=== PATIENT | female | born 1955 | race Caucasian/White ===

== ENCOUNTER 2022-08-31 14:11 | Inpatient (IN) | payer OTHER ==
[~2022-08-31] VITALS: Ht 165.1 cm; Wt 61.1 kg
[~2022-08-31 14:11] MED LIST: AMLO5 PO; Desyrel50 MG PO; Keflex500 MG PO; PRAM.125 PO; Zofran Odt8 MG SL
[2022-08-31 16:03] LABS: BASOPHILS ABSOLUTE AUTO 0.07 K/mm3 (0.00-0.23); BASOPHILS PERCENT AUTO 1 % (0-2); EOSINOPHILS ABSOLUTE AUTO 0.09 K/mm3 (0.00-0.68); EOSINOPHILS PERCENT AUTO 1 % (0-6); Hematocrit 21.5 % (33.0-51.0); Hemoglobin 7.3 g/dL (11.5-16.0); IMMATURE GRAN ABSOLUTE AUTO 0.07 K/mm3 (0.00-0.10); IMMATURE GRAN PERCENT AUTO 1 % (0-1); LYMPHOCYTES ABSOLUTE AUTO 0.45 K/mm3 (0.84-5.20); LYMPHOCYTES PERCENT AUTO 4 % (21-46); MONOCYTES ABSOLUTE AUTO 0.48 K/mm3 (0.16-1.47); MONOCYTES PERCENT AUTO 4 % (4-13); Mean Corpuscular HGB 31.1 pg (26.0-34.0); Mean Corpuscular Volume 92 fL (80-100); Mean Platelet Volume 9.7 fL (9.1-12.4); NEUTROPHILS ABSOLUTE AUTO 10.31 K/mm3 (1.96-9.15); NEUTROPHILS PERCENT AUTO 90 % (41-73); Platelet Count 121 K/mm3 (150-400); RDW Coefficient Variation 15.4 % (11.7-14.2); RDW Standard Deviation 50.5 fL (35.1-46.3); Red Blood Cell Count 2.35 M/mm3 (3.80-5.20); White Blood Cell Count 11.47 K/mm3 (4.00-11.30)
[2022-08-31 16:29] LABS: Albumin, Blood 3.2 g/dL (3.4-5.0); Bilirubin, Total 0.7 mg/dL (0.1-1.0); Bun/Creatinine Ratio 9.1 (12.0-20.0); Creatinine, Blood 10.8 mg/dL (0.40-1.00); Globulin, Blood 3.1 g/dL (2.2-4.0); Potassium, Blood 4.1 mmol/L (3.5-5.5); Total Protein, Blood 6.3 g/dL (6.4-8.2)
[2022-08-31 20:50] LABS: Hemoglobin 7.6 g/dL (11.5-16.0)
[2022-08-31 21:42] LABS: Percent Saturation 19.9 % (15.0-50.0)
[2022-08-31 23:30] LABS: Source, Urine Clean Catch
[2022-08-31 23:33] LABS: Bilirubin, Urine Neg (Neg); Blood, Urine 2+ (Neg); Glucose Qualitative, Urine Neg (Neg); Ketones, Urine Neg (Neg); Leukocyte Esterase, Urine 2+ (Neg); Nitrite, Urine Pos (Neg); Protein, Urine 3+ (Neg); Specific Gravity, Urine 1.015 (1.003-1.022); Urobilinogen, Urine NORM (Normal)
[2022-08-31 23:48] LABS: Appearance, Urine Hazy (Clear); Color, Urine Pale Yellow (P-Yellow)
[2022-08-31 23:49] LABS: Bacteria Many /hpf; Hyaline Casts 0-2 /lpf (0-2); Red Blood Cells, Urine 0-2 /hpf (0-2); Squamous Epithelial Cells Few /hpf (Few)
[2022-09-01 00:04] LABS: Creatinine, Urine Random 49.7 mg/dL (27.00-270.00); Protein, Urine Random 192.7 mg/dL (0.0-11.9)
[2022-09-01 04:31] LABS: BASOPHILS ABSOLUTE AUTO 0.08 K/mm3 (0.00-0.23); BASOPHILS PERCENT AUTO 1 % (0-2); EOSINOPHILS ABSOLUTE AUTO 0.19 K/mm3 (0.00-0.68); EOSINOPHILS PERCENT AUTO 2 % (0-6); Hematocrit 20.4 % (33.0-51.0); Hemoglobin 7.2 g/dL (11.5-16.0); IMMATURE GRAN ABSOLUTE AUTO 0.12 K/mm3 (0.00-0.10); IMMATURE GRAN PERCENT AUTO 1 % (0-1); LYMPHOCYTES PERCENT AUTO 7 % (21-46); MONOCYTES PERCENT AUTO 5 % (4-13); Mean Corpuscular HGB 31.9 pg (26.0-34.0); Mean Corpuscular HGB Conc 35.3 g/dL (31.5-36.5); Mean Corpuscular Volume 90 fL (80-100); Mean Platelet Volume 9.7 fL (9.1-12.4); NEUTROPHILS ABSOLUTE AUTO 10.86 K/mm3 (1.96-9.15); NEUTROPHILS PERCENT AUTO 85 % (41-73); Platelet Count 121 K/mm3 (150-400); RDW Coefficient Variation 15.3 % (11.7-14.2); RDW Standard Deviation 49.7 fL (35.1-46.3); Red Blood Cell Count 2.26 M/mm3 (3.80-5.20); White Blood Cell Count 12.85 K/mm3 (4.00-11.30)
--- NOTE | 2022-09-01 04:56 | NUR ---
SHIFT SUMMARY PT ARRIVED TO FLOOR VIA W/C. ASSESSMENT COMPLETE, ADMISSION COMPLETE. SKIN ASSESSMENT DONE, SKIN INTACT. BP ELEVATED ON ARRIVAL, ADMINISTERED PRN HYDRALAYZINE. LATER IN AM, ADMINISTERED 2ND DOSE OF PRN HYDRALYZINE FOR SBP 172. UA COLLECTED. PT STARTED ON ABX. PT REPORTS MINIMIAL OUTPUT SINCE IV LASIX. STRICT I/O'S. PT AMBULATING INDEPENDENTLY IN ROOM, AWARE TO USE HAT WHEN URINATING. PT REPORTS DIFFICULTY BREATHING AT REST, SPO2 >92% ON ROOM AIR, LUNGS COARSE CRACKLES. DENIES ANY CP OR PAIN ANYWHERE ELSE. PT ORIENTED X4, ABLE TO MAKE NEEDS KNOWN, CALL LIGHT IN REACH.
[2022-09-01 06:14] LABS: Albumin, Blood 3.1 g/dL (3.4-5.0); Bilirubin, Total 0.5 mg/dL (0.1-1.0); Calcium, Blood 8.8 mg/dL (8.5-10.1); Potassium, Blood 3.9 mmol/L (3.5-5.5); Total Protein, Blood 6.1 g/dL (6.4-8.2)
[2022-09-01 06:18] LABS: Bun/Creatinine Ratio 9.9 (12.0-20.0); Creatinine, Blood 10.9 mg/dL (0.40-1.00); Phosphorus, Blood 8.6 mg/dL (2.5-4.9)
--- NOTE | 2022-09-01 06:29 | NUR ---
PHYSCICIAN NOTIFICATION [id number] PAGED RECYCLING COLLECTIONS DRIVER REGARDING REGARDING CRITICALLY HIGH PHOS 8.6, NO NEW ORDERS.
--- NOTE | 2022-09-01 18:45 | NUR ---
SHIFT SUMMARY PT SLEEPING MOST OF DAY. WAS AWAKE ON AND OFF THIS AFTERNOON DUE TO A NOSE BLEED THAT LESSENED BUT WAS STILL SPOTTING FOR APPROX 1.5 HOURS. BP ELEVATED AND HYDRALAZINE GIVEN. INDEPENDENT TO BATHROOM BUT APPEARS WEAK AND REPORTS TIRING VERY QUICKLY AND EASILY. STATES ALL SHE WANTS TO DO IS LAY BACK DOWN AND GO TO SLEEP. DR. GOLDEN REQUESTING DINNER TO BE HELD FOR POSSIBLE PERMCATH PLACEMENT THIS EVENING. PT AWARE AND AGREEABLE BUT SAYS SHE IS QUITE HUNGRY SINCE SHE SLEPT THROUGH LUNCH.
--- NOTE | 2022-09-02 06:02 | NUR ---
Patient brought back up from dialysis catheter placement. Sang drainage noted on dressing, dressing changed and reinforced. PRN pain meds given. Patient states pain located in lower extremities. Patient is independent and walks without assistance. AA0X4. Hydralazine given for systolic BP >160. HR in 90's at rest.
[2022-09-02 06:09] LABS: HBSAG SCREEN Negative (Negative)
--- NOTE | 2022-09-02 12:00 | NUR ---
PT RETURNED FROM DIALYSIS. MORE DROWSY AND ACTS "DRUNK" REMAINS ORIENTED AND ABLE TO RESPOND APPROPRIATELY. REPORTS SEVERE BACK PAIN. LONG LINE TEAMSTER CALLED APPROX 30 MINUTES PRIOR TO PT BEING DONE WITH DIALYSIS AND DISCUSSED CONCERN ABOUT CHANGE IN BEHAVIOR. BRIEFLY WENT AND CHECKED ON PT AND SHE REPORTED LOTS OF PAIN AND WAS ROCKING BACK AND FORTH IN BED. APPEARED WITHDRAWN AND UNINTERESTED IN TALKING AT THE TIME. MD NOTIFIED OF CHANGE IN MENTATION/BEHAVIOR
[2022-09-02 12:24] LABS: BASOPHILS ABSOLUTE AUTO 0.05 K/mm3 (0.00-0.23); BASOPHILS PERCENT AUTO 0 % (0-2); EOSINOPHILS ABSOLUTE AUTO 0.04 K/mm3 (0.00-0.68); EOSINOPHILS PERCENT AUTO 0 % (0-6); Hematocrit 18.8 % (33.0-51.0); Hemoglobin 6.7 g/dL (11.5-16.0); IMMATURE GRAN ABSOLUTE AUTO 0.12 K/mm3 (0.00-0.10); IMMATURE GRAN PERCENT AUTO 1 % (0-1); LYMPHOCYTES ABSOLUTE AUTO 0.34 K/mm3 (0.84-5.20); LYMPHOCYTES PERCENT AUTO 3 % (21-46); MONOCYTES ABSOLUTE AUTO 0.73 K/mm3 (0.16-1.47); MONOCYTES PERCENT AUTO 5 % (4-13); Mean Corpuscular HGB 31.9 pg (26.0-34.0); Mean Corpuscular HGB Conc 35.6 g/dL (31.5-36.5); Mean Corpuscular Volume 90 fL (80-100); Mean Platelet Volume 10.6 fL (9.1-12.4); NEUTROPHILS ABSOLUTE AUTO 12.38 K/mm3 (1.96-9.15); NEUTROPHILS PERCENT AUTO 91 % (41-73); Platelet Count 152 K/mm3 (150-400); RDW Coefficient Variation 15.8 % (11.7-14.2); RDW Standard Deviation 51.3 fL (35.1-46.3); White Blood Cell Count 13.66 K/mm3 (4.00-11.30)
[2022-09-02 13:38] LABS: Albumin, Blood 3.1 g/dL (3.4-5.0); Anion Gap 12 mmol/L (6-16); Blood Urea Nitrogen 40 mg/dL (8-24); Bun/Creatinine Ratio 8.2 (12.0-20.0); CO2, Blood 24 mmol/L (21-32); Calcium, Blood 8.7 mg/dL (8.5-10.1); Chloride, Blood 100 mmol/L (98-108); Creatinine, Blood 4.86 mg/dL (0.40-1.00); Glomerular Filtration Rate 9 (60-); Glucose, Blood 141 mg/dL (70-99); Phosphorus, Blood 3.4 mg/dL (2.5-4.9); Potassium, Blood 3.1 mmol/L (3.5-5.5); Sodium, Blood 136 mmol/L (136-145)
--- NOTE | 2022-09-02 14:30 | NUR ---
PT ATTEMPTED TO GET OOB TO USE RESTROOM. UNABLE TO MOVE HER FEET OR TAKE STEPS. WAS ABLE TO BEAR HER WEIGHT THOUGH. ATTEMPTED TO USE FWW AND JUST PUSHED IT FORWARD WITHOUT TAKING STEPS. REQUIRED MOD ASSIST UP TO BSC. DENIED FEELING LIGHTHEADED OR DIZZY. CONTINUES TO APPEAR "DRUNK". TO GO TO CT SHORTLY.
[2022-09-02 14:48] LABS: Base Excess Venous 4.6 mmol/L; Bicarbonate Venous 28.3 mmol/L (24.0-30.0); PCO2 Venous 34.5 mmHg (38-42); pH Blood Venous 7.51 (7.34-7.37)
--- NOTE | 2022-09-02 16:30 | NUR ---
PT MORE APPROPRIATE AND ABLE TO TAKE A FEW STEPS TO THE COMMODE. NEURO CHECK COMPLETED EARLIER HAD EQUAL STRENGTH IN ARMS AND LEGS WITH WEAKNESS PRESENT. NO FACIAL DROOP NOTED. VOICE STRONGER NOW AND PT BECOMING BEHAVIORLY MORE HER BASELINE...CHATTY AND FRIENDLY.
--- NOTE | 2022-09-02 18:41 | NUR ---
REPORT CALLED TO ISIDORO AYERS IN ICU. PT CONTINUED TO IMPROVE MENTALLY. PLAN FOR FOLLOW UP CT THIS EVENING WITH POTENTIAL TRANSFER TO [facility]. LAST BP CHECKED WAS 157 SBP WITH MD AWARE. TRANSFERRED TO ROOM ICU 9 BY BED WITH BELONGINGS.
--- NOTE | 2022-09-02 19:00 | NUR ---
ASSUMED CARE ASSUMED CARE OF THIS PATIENT AT 1900. BEDSIDE REPORT COMPLETED WITH ANDRIA CHAUDHRY. PATIENT IS LYING IN BED AWAKE AND TALKING ON THE TELEPHONE. NO MEDICATIONS INF THROUGH PIV'S. PERMACATH IN PLACE AND 2 PIV'S.
[2022-09-02 20:58] LABS: Albumin, Blood 2.9 g/dL (3.4-5.0); Anion Gap 8 mmol/L (6-16); Blood Urea Nitrogen 44 mg/dL (8-24); Bun/Creatinine Ratio 7.4 (12.0-20.0); CO2, Blood 27 mmol/L (21-32); Calcium, Blood 8.6 mg/dL (8.5-10.1); Chloride, Blood 102 mmol/L (98-108); Creatinine, Blood 5.93 mg/dL (0.40-1.00); Glomerular Filtration Rate 7 (60-); Glucose, Blood 113 mg/dL (70-99); Phosphorus, Blood 5.6 mg/dL (2.5-4.9); Potassium, Blood 3.4 mmol/L (3.5-5.5); Sodium, Blood 137 mmol/L (136-145)
[2022-09-03 03:26] LABS: BASOPHILS ABSOLUTE AUTO 0.05 K/mm3 (0.00-0.23); BASOPHILS PERCENT AUTO 1 % (0-2); EOSINOPHILS ABSOLUTE AUTO 0.08 K/mm3 (0.00-0.68); EOSINOPHILS PERCENT AUTO 1 % (0-6); Hematocrit 19.9 % (33.0-51.0); Hemoglobin 6.7 g/dL (11.5-16.0); IMMATURE GRAN ABSOLUTE AUTO 0.07 K/mm3 (0.00-0.10); IMMATURE GRAN PERCENT AUTO 1 % (0-1); LYMPHOCYTES ABSOLUTE AUTO 0.67 K/mm3 (0.84-5.20); LYMPHOCYTES PERCENT AUTO 8 % (21-46); MONOCYTES ABSOLUTE AUTO 0.56 K/mm3 (0.16-1.47); MONOCYTES PERCENT AUTO 7 % (4-13); Mean Corpuscular HGB 31.3 pg (26.0-34.0); Mean Corpuscular HGB Conc 33.7 g/dL (31.5-36.5); Mean Corpuscular Volume 93 fL (80-100); NEUTROPHILS ABSOLUTE AUTO 6.99 K/mm3 (1.96-9.15); NEUTROPHILS PERCENT AUTO 83 % (41-73); Platelet Count 125 K/mm3 (150-400); RDW Coefficient Variation 15.9 % (11.7-14.2); RDW Standard Deviation 54.2 fL (35.1-46.3); Red Blood Cell Count 2.14 M/mm3 (3.80-5.20); White Blood Cell Count 8.42 K/mm3 (4.00-11.30)
[2022-09-03 04:01] LABS: Albumin, Blood 2.9 g/dL (3.4-5.0); Anion Gap 9 mmol/L (6-16); Blood Urea Nitrogen 44 mg/dL (8-24); Bun/Creatinine Ratio 6.9 (12.0-20.0); CO2, Blood 26 mmol/L (21-32); Calcium, Blood 8.6 mg/dL (8.5-10.1); Chloride, Blood 103 mmol/L (98-108); Creatinine, Blood 6.42 mg/dL (0.40-1.00); Glomerular Filtration Rate 7 (60-); Glucose, Blood 95 mg/dL (70-99); Phosphorus, Blood 6.5 mg/dL (2.5-4.9); Potassium, Blood 3.5 mmol/L (3.5-5.5); Sodium, Blood 138 mmol/L (136-145)
--- NOTE | 2022-09-03 05:01 | NUR ---
SHIFT SUMMARY PATIENT HAD REPEAT HEAD CT COMPLETED WITH NO CHANGES NOTED FROM PREVIOUS CT. DR. CARRILLO CONSULTED WITH [facility] AND IT WAS DETERMINED TO KEEP PATIENT AT [facility]. ORDERS RECEIVED TO KEEP SBP LESS THAN 150 AND MONITOR FOR NEURO CHANGES. PATIENT STATUS CHANGED TO PCU. PATIENT WAS UP TO BSC TWICE AND UP TO RECLINER ONCE. AMBULATES WELL WITH 1 PERSON SBA-LEGS ARE STILL SHAKEY WHEN AMBULATING. VSS STABLE, DENIES HEADACHE, NAUSEA, AND VISION CHANGES. MRI ORDERED FOR DAY SHIFT. NO OTHER CHANGES DURING SHIFT.
--- NOTE | 2022-09-03 08:30 | NUR ---
Assumed care for pt at 0700. Pt had a repeat CT scan last night, plan is for MRI today, pt has tolerated that imaging prior. Goal is to keep systolic <150 now. Plan is for pt to receive dialysis today through her Permacath in right anterior chest. Pt ambulatory w/ standby assist due to balance, she remains implusive though, only using callbell 50% of the time. Pt has been downgraded to PCU status. She is A&Ox4, GCS 15, and resting comfrotably in bed currently.
--- NOTE | 2022-09-03 09:07 | NUR ---
Completed MRI safety sheet faxed.
--- NOTE | 2022-09-03 11:24 | NUR ---
Pt has been type and screened. 1 unit of PRBCs is available and she will be transfused during dialysis.
--- NOTE | 2022-09-03 11:47 | NUR ---
Pt signed consent for blood transfusion. RN witnessed and placed consent in her chart.
--- NOTE | 2022-09-03 13:49 | NUR ---
Pt taken by transport to MRI. Pt will be transported to dialysis, she remains in her hospital bed.
--- NOTE | 2022-09-03 17:37 | NUR ---
Pt completed dialysis and RN went to [place] pt back to ICU 9. She received 1 unit of PRBCs during dialysis.
--- NOTE | 2022-09-03 19:02 | NUR ---
Pt had an MRI completed and received dialysis w/ 1 unit of PRBCs. Blood consent is in the chart. Pt worked w/ Speech, PT and OT, she is a standby assist w/ a walker. Goal is systolic <150.
[2022-09-03 19:56] LABS: SARS-Cov-2 (COVID-19) PCR, MMC NEGATIVE (NEGATIVE)
--- NOTE | 2022-09-03 22:35 | NUR ---
ASSUMPTION OF CARE/ASSESSMENT: ASSUMED CARE OF PT AT 1900. PT STATES SHE IS TIRED AND EXHAUSTED FROM THE DAY. PT IS A&O X 4 AND IS FOLLOWING COMMANDS/ANSWERING QUESTIONS APPROPRIATELY. PT HAS NO C/O OF HEADACHE, DIZZINESS OR BLURRED VISION AT THIS TIME. PT CURRENTLY ON RA WITH SPO2 98<, RR 18-20 AND LUNG SOUNDS ARE CLEAR WITH DIM BASES BILATERALLY. PT SR ON MONITOR WITH HR IN THE 80'S AND SBP 140'S; NO C/O CHEST PAIN. PT HAS HYPERACTIVE BOWEL SOUNDS; ABD SOFT, NON-TENDER. PT USING TOILET IN ROOM FOR VOIDING/ELIMINATION. PT SKIN INTACT AND WARM; THERE IS A SIGNIFICANT BRUISE ON THE LEFT POSTERIOR BACK, BUT NO C/O OF PAIN AT SITE. PT HAS PPP X 4 AND PIV X 2. PT CALL LIGHT IN REACH, BED LOWERED, WILL CONTINUE TO MONITOR.
[2022-09-04 04:00] LABS: BASOPHILS ABSOLUTE AUTO 0.08 K/mm3 (0.00-0.23); BASOPHILS PERCENT AUTO 1 % (0-2); EOSINOPHILS ABSOLUTE AUTO 0.12 K/mm3 (0.00-0.68); EOSINOPHILS PERCENT AUTO 1 % (0-6); Hematocrit 26.8 % (33.0-51.0); Hemoglobin 8.4 g/dL (11.5-16.0); IMMATURE GRAN PERCENT AUTO 1 % (0-1); LYMPHOCYTES ABSOLUTE AUTO 0.78 K/mm3 (0.84-5.20); LYMPHOCYTES PERCENT AUTO 9 % (21-46); MONOCYTES ABSOLUTE AUTO 0.62 K/mm3 (0.16-1.47); MONOCYTES PERCENT AUTO 7 % (4-13); Mean Corpuscular HGB 28.5 pg (26.0-34.0); Mean Corpuscular HGB Conc 31.3 g/dL (31.5-36.5); Mean Corpuscular Volume 91 fL (80-100); Mean Platelet Volume 10.2 fL (9.1-12.4); NEUTROPHILS ABSOLUTE AUTO 7.47 K/mm3 (1.96-9.15); NEUTROPHILS PERCENT AUTO 81 % (41-73); Platelet Count 150 K/mm3 (150-400); RDW Coefficient Variation 20.8 % (11.7-14.2); RDW Standard Deviation 69.8 fL (35.1-46.3); Red Blood Cell Count 2.95 M/mm3 (3.80-5.20); White Blood Cell Count 9.17 K/mm3 (4.00-11.30)
[2022-09-04 04:15] LABS: Albumin, Blood 2.9 g/dL (3.4-5.0); Anion Gap 9 mmol/L (6-16); Blood Urea Nitrogen 26 mg/dL (8-24); Bun/Creatinine Ratio 5.5 (12.0-20.0); CO2, Blood 26 mmol/L (21-32); Calcium, Blood 8.4 mg/dL (8.5-10.1); Chloride, Blood 103 mmol/L (98-108); Creatinine, Blood 4.75 mg/dL (0.40-1.00); Glomerular Filtration Rate 10 (60-); Glucose, Blood 134 mg/dL (70-99); Phosphorus, Blood 4.6 mg/dL (2.5-4.9); Potassium, Blood 3.7 mmol/L (3.5-5.5); Sodium, Blood 138 mmol/L (136-145)
--- NOTE | 2022-09-04 06:38 | NUR ---
SHIFT SUMMARY: NO ACUTE CHANGES OVERNIGHT. PT SLEPT FOR THE MAJORITY OF THE SHIFT. SBP MAINTAINED < 150. PT GAIT MORE STEADY. VSS THROUGHOUT THE NIGHT. WILL CONTINUE TO MONITOR UNTIL ONCOMING RN ARRIVES.
--- NOTE | 2022-09-04 10:00 | NUR ---
Assumed care for pt at 0700. She had an uneventful night, unsure if she will receive dialysis today. Goal remains to keep systolic <150. Pt has been ambulating in the room w/ walker w/ standby assist and has been using her call light intermittently.
--- NOTE | 2022-09-04 10:00 | NUR ---
Assumed care for pt at 0700. He is receiving K+ 20 mEq 0.9% NS at 100 ml/hr. Lynn cath remains in place. Pt has orders for PT and OT to work w/ him, per his he uses both canes and walkers at home for mobility.
--- NOTE | 2022-09-04 11:00 | NUR ---
Pt will not be receiving dialysis today, perhaps tomorrow per finisher accordion.
--- NOTE | 2022-09-04 12:16 | NUR ---
Spoke w/ Dr. Caro, he is downgrading her to Medical status, non-telemetry from PCU status.
--- NOTE | 2022-09-04 17:51 | NUR ---
Pt did not receive dialysis today, possibly tomorrow. She did take a shower in the shower chair and has been ambulating around the room w/ a walker and standby assist. Dr. Caro downgraded the pt from PCU to Medical, non-tele. Goal remains to keep systolic <150.
--- NOTE | 2022-09-04 20:31 | NUR ---
ASSUMPTION OF CARE/ASSESSMENT: ASSUMED CARE OF PT AT 1900. PT IS IN BED, A&O X 4. PT DISPLAYS LABILE MOOD, BUT COOPERATING WITH CARE AT THIS TIME. CURRENTLY PT ON RA WITH SPO2 98<, RR 16-18, AND NO C/O SOB. PT HR INTHE 80'S AND SBP 160'S; MEDICATED WITH HYDARLAZINE PER EMAR TO MAINTAING SBP < 150'S. PT HAS NO C/O CHEST PAIN AT THIS TIME. PT HAS HYPERACTIVE BS IN ALL QUADRANTS AND IS USING THE TOILET IN THE ROOM FOR VOIDING/ELIMINATION. PT TRASNFERRING/AMBULATING VIA WALKER WITH SBA; AT TIMES PT IS FOUND IN ROOM ALREADY UP WITH NO ONE IN THE ROOM, PT REMINDED TO CALL STAFF WHEN GETTING OUT OF BED. PT IS IMPULSIVE AT TIMES. PT PPP X 4; PIV IN THE L. WRIST THAT IS SALINE LOCKED. PT HAS LARGE BRUISE ON LEFT SIDE OF BACK THAT HAS BEEN THERE FOR 5-6 DAYS; SCATTERED BRUSING ON ARMS AND ON ANTERIOR R. UPPER CHEST. BED LOWERED, CALL LIGHT IN REACH, WILL CONTINUE TO MONITOR.
--- NOTE | 2022-09-05 06:11 | NUR ---
SHIFT SUMMARY: NO ACUTE CHANGES OVER NIGHT. PT WAS ABLE TO SLEEP THROUGHOUT THE NIGHT. PT SBP IN THE 160'S AND 2 IVP OF HYDRALAZINE WERE ADMINISTERED TO MAINTAIN SBP < 150. L. WRIST PIV INFILTRATED, NEW PIV IN RFA PLACED AND IS CURRENTLY SALINE LOCKED.
--- NOTE | 2022-09-05 07:14 | NUR ---
ASSUME CARE: I have assumed care of this patient. At this time she is sitting upright in chair watching television.
[2022-09-05 08:48] LABS: Albumin, Blood 3.1 g/dL (3.4-5.0); Anion Gap 9 mmol/L (6-16); Blood Urea Nitrogen 47 mg/dL (8-24); Bun/Creatinine Ratio 7.3 (12.0-20.0); CO2, Blood 23 mmol/L (21-32); Calcium, Blood 8.9 mg/dL (8.5-10.1); Chloride, Blood 107 mmol/L (98-108); Creatinine, Blood 6.43 mg/dL (0.40-1.00); Glomerular Filtration Rate 7 (60-); Glucose, Blood 115 mg/dL (70-99); Phosphorus, Blood 6.6 mg/dL (2.5-4.9); Potassium, Blood 4.2 mmol/L (3.5-5.5); Sodium, Blood 139 mmol/L (136-145)
--- NOTE | 2022-09-05 14:31 | NUR ---
TRANSFER: Pt currently in dialysis. Report was given to medical floor RN. Pt will go to room 332 after dialysis.
--- NOTE | 2022-09-05 14:49 | NUR ---
PROVIDER UPDATE: Dr Caro notified of pt's continued HTN after PRN medications. Telephone order for PO clonidine. Medical floor nurse updated and agrees to monitor pt from here on out.
--- NOTE | 2022-09-05 17:45 | NUR ---
pt arrived to 332 from icu, dialysis, states she feels crappy, not having pain, pt has an odd affect, cooperative with care, up ad myke, permacath is c/d/i, bruising noted, to multiple areas, oriented to room layout and call light, call light in reach.
--- NOTE | 2022-09-06 04:23 | NUR ---
SHIFT SUMMARY PATIENT HAD NO ACUTE CHANGES. PATIENT SLEEPING BUT AROUSABLE. HAD DIALYSIS ON DAY SHIFT. PERMACATH C/D/I. PIV REMAINS INTACT. ON ROOM AIR. VSS/AFEBRILE. DENIES PAIN, SOB, AND N/V. ALERT AND INDEPENDENT IN ROOM. CALL LIGHT IN REACH. BED IN LOWEST POSITION. WILL CONTINUE TO MONITOR UNTIL DAY SHIFT NURSE ASSUMES CARE.
[2022-09-06 13:08] LABS: A/G RATIO 1.3 (0.7-1.7); ALBUMIN 3.1 g/dL (2.9-4.4); ALPHA-1-GLOBULIN 0.3 g/dL (0.0-0.4); ALPHA-2-GLOBULIN 0.6 g/dL (0.4-1.0); BETA GLOBULIN 0.8 g/dL (0.7-1.3); GAMMA GLOBULIN 0.7 g/dL (0.4-1.8); GLOBULIN, TOTAL 2.4 g/dL (2.2-3.9); M-SPIKE Not Observed g/dL (Not Observed); PROTEIN, TOTAL, SERUM 5.5 g/dL (6.0-8.5)
--- NOTE | 2022-09-06 15:30 | NUR ---
SPOKE WITH DR. PARKER ABOUT PT'S AFTERNOON BP AND HE STARTED HER ON CLONIDINE PO TID, SEE EMAR. PROVIDER IS AWARE OF THE INTERACTION BETWEEN CLONIDINE AND BETA SILAS, HE STATED TO OVERRIDE.
--- NOTE | 2022-09-06 15:33 | NUR ---
DR. ARMSTRONG STATED HE WOULD LIKE BOTH SCHEDULED AND PRN CLONIDINE.
--- NOTE | 2022-09-06 18:08 | NUR ---
SHIFT SUMMARY NO ACUTE CHANGES THIS SHIFT. PT AOX4, INDEPENDENT. PT HAS HAD ELEVATED BP'S THIS SHIFT, MEDICATED PER EMAR. PROVIDER AWARE. PLAN IS TO WAIT FOR A DIALYSIS CHAIR TO OPEN UP. SHE DID NOT RECEIVE DIALYSIS THIS SHIFT. WILL REPORT TO ONCOMING NURSE.
[2022-09-07 03:09] LABS: HBSAG SCREEN Negative (Negative); HCV AB <0.1 (0.0-0.9); HEP A AB, IGM Negative (Negative); HEP B CORE AB, IGM Negative (Negative)
--- NOTE | 2022-09-07 03:51 | NUR ---
SHIFT SUMMARY PATIENT IS ALERT AND ORIENTED. PATIENT HAS BEEN PLEASENT AND COOPERATIVE WITH CARE. PATIENT HAS HAD NO ACUTE EVENTS THIS SHIFT. VITAL SIGNS REVIEWED. PATIENTS BP HAS BEEN ELEVATED, CLONODINE HAS BEEN EFFECTIVE. PATIENT HAS NOT COMPLAINED OF PAIN, NAUSEA, SOB OR VOMITTING. PATIENT HAS BEEN IND AND BEEN RESTING MOST OF SHIFT. BED IN LOCKED AND LOWEST POSITION. CALL LIGHT IN PLACE. WILL MONITOR UNTIL SHIFT CHANGE.
--- NOTE | 2022-09-07 11:11 | NUR ---
PLAN FOR PATIENT IS TO HAVE DIALYSIS TODAY. SHE WILL NEED TO BE AT DIALYSIS AT [facility] 1230 TODAY. SHE IS ABLE TO DC TO HOME AFERWARD. RIDE HOME WILL ARRIVE AT 530PM ([place]). PATIENT HAS CALLED AND SET UP A RIDE WITH [facility] FOR HER OUT PATIENT DIALYSIS INTAKE TOMORROW.
[2022-09-07] MEDS ORDERED: Acetaminophen650 M1 PO (11:44)
[2022-09-07] MEDS ORDERED: CATAPRES0.2 M1 PO (11:45)
--- NOTE | 2022-09-07 17:25 | NUR ---
DISCHARGE- PATIENT IS DISCHARGED TO HOME, WHICH SHE DECIDED WILL BE AT A RESIDENCE ON THE SAME PROPERTY HER HOME, BUT WITH FRIENDS. MAITE ENGEL IS PICKING HER UP AT 530PM. SHE IS BEING WHEELED OUT BY [employer] STAFF. IV DC. DIALYSIS WAS DONE TODAY WITH HER OP DIDALYSIS INTAKE TOMORROW AT 1:30PM. SHE HAS RIDE SCHEDULED THROUGH HER INSURANCE. EDUCATION, APPTS AND MEDICATIONS WERE REVIEWED BEFORE DISCHARGE AND SHE IS AWARE OF THE NEW MEDICATION BEING FAXED TO [facility] ON [address].
[2022-09-08 11:10] LABS: M-SPIKE, % Not Observed % (Not Observed); PROTEIN,TOTAL,URINE 164.9 mg/dL (Not Estab.)
== END 2022-09-07 17:25 | disposition home or self-care (01) | DRG 673 ==
LOC: ER 14:11 → MEDS 20:36 → ICUW 20:36 → MEDS 21:44 → ICUW 09-02 18:26 → MEDS 09-05 17:30
PROVIDERS: Family Medicine; Internal Medicine Nephrology; Physician Assistant; ADMIT Internal Medicine
PROC: 0JH63XZ Insertion of Tunneled Vascular Access Device into Chest Subcutaneous Tissue and Fascia, Percutaneous Approach (ICD-10-PCS; principal; 2022-09-01)
PROC: 02HV33Z Insertion of Infusion Device into Superior Vena Cava, Percutaneous Approach (ICD-10-PCS; 2022-09-01)
PROC: B518ZZA Fluoroscopy of Superior Vena Cava, Guidance (ICD-10-PCS; 2022-09-01)
PROC: B548ZZA Ultrasonography of Superior Vena Cava, Guidance (ICD-10-PCS; 2022-09-01)
PROC: 30233N1 Transfusion of Nonautologous Red Blood Cells into Peripheral Vein, Percutaneous Approach (ICD-10-PCS; 2022-09-03)
PROC: 5A1D70Z Performance of Urinary Filtration, Intermittent, Less than 6 Hours Per Day (ICD-10-PCS; 2022-09-06)
DX: N17.9 Acute kidney failure, unspecified (principal); I61.3 Nontraumatic intracerebral hemorrhage in brain stem; I63.9 Cerebral infarction, unspecified; I12.0 Hypertensive chronic kidney disease with stage 5 chronic kidney disease or end stage renal disease; I16.1 Hypertensive emergency; J81.1 Chronic pulmonary edema; J90 Pleural effusion, not elsewhere classified; E87.4 Mixed disorder of acid-base balance; R65.10 Systemic inflammatory response syndrome (SIRS) of non-infectious origin without acute organ dysfunction; Z66 Do not resuscitate; N18.6 End stage renal disease; E87.70 Fluid overload, unspecified; F17.210 Nicotine dependence, cigarettes, uncomplicated; F12.20 Cannabis dependence, uncomplicated; I16.0 Hypertensive urgency; D69.6 Thrombocytopenia, unspecified; D63.1 Anemia in chronic kidney disease; E83.39 Other disorders of phosphorus metabolism; E88.09 Other disorders of plasma-protein metabolism, not elsewhere classified; E87.6 Hypokalemia; G25.81 Restless legs syndrome; F31.9 Bipolar disorder, unspecified; F20.9 Schizophrenia, unspecified; R79.89 Other specified abnormal findings of blood chemistry; B96.20 Unspecified Escherichia coli [E. coli] as the cause of diseases classified elsewhere; B95.8 Unspecified staphylococcus as the cause of diseases classified elsewhere; Z20.822 Contact with and (suspected) exposure to COVID-19; Z88.8 Allergy status to other drugs, medicaments and biological substances; Z87.19 Personal history of other diseases of the digestive system; Z98.51 Tubal ligation status; Z98.890 Other specified postprocedural states
CPT/HCPCS: 36415; 36430; 36558; 70450; 70551; 71046; 76770; 76937; 77001; 80053; 80069; 80074; 81001; 82043; 82140; 82306; 82550; 82570; 82728; 82803; 82947; 83540; 83550; 83605; 83880; 83970; 84100; 84145; 84156; 84165; 84166; 84484; 85014; 85018; 85025; 86317; 86704; 86803; 86850; 86900; 86901; 86923; 87040; 87077; 87086; 87186; 87340; 92610; 93005; 93010; 93306; 96374; 97116; 97162; 97166; 97530; 97535; 99152; 99285-25; A9270; C1750; C1769; C1894; J0360; J0696; J1644; J1650; J1940; J2250; J2270; J3010; J7040; J7050; P9016; U0004

== ENCOUNTER 2022-11-06 11:20 | Observation (INO) | payer OTHER ==
[~2022-11-06] VITALS: Ht 165.1 cm; Wt 59.4 kg
[~2022-11-06 11:20] MED LIST changes: +Acetaminophen650 M1 PO; +CATAPRES0.2 M1 PO
[2022-11-06 13:34] LABS: BASOPHILS ABSOLUTE AUTO 0.08 K/mm3 (0.00-0.23); BASOPHILS PERCENT AUTO 1 % (0-2); EOSINOPHILS ABSOLUTE AUTO 0.11 K/mm3 (0.00-0.68); EOSINOPHILS PERCENT AUTO 2 % (0-6); Hematocrit 38.7 % (33.0-51.0); Hemoglobin 13.3 g/dL (11.5-16.0); IMMATURE GRAN ABSOLUTE AUTO 0.01 K/mm3 (0.00-0.10); IMMATURE GRAN PERCENT AUTO 0 % (0-1); LYMPHOCYTES ABSOLUTE AUTO 1.26 K/mm3 (0.84-5.20); LYMPHOCYTES PERCENT AUTO 22 % (21-46); MONOCYTES ABSOLUTE AUTO 0.39 K/mm3 (0.16-1.47); MONOCYTES PERCENT AUTO 7 % (4-13); Mean Corpuscular HGB Conc 34.4 g/dL (31.5-36.5); Mean Corpuscular Volume 87 fL (80-100); Mean Platelet Volume 9.3 fL (9.1-12.4); NEUTROPHILS ABSOLUTE AUTO 3.78 K/mm3 (1.96-9.15); NEUTROPHILS PERCENT AUTO 67 % (41-73); Platelet Count 202 K/mm3 (150-400); RDW Standard Deviation 38.5 fL (35.1-46.3); Red Blood Cell Count 4.43 M/mm3 (3.80-5.20); White Blood Cell Count 5.63 K/mm3 (4.00-11.30)
[2022-11-06 13:46] LABS: Albumin, Blood 3.9 g/dL (3.4-5.0); Albumin/Globulin Ratio 1.2 (0.8-1.8); Bilirubin, Total 0.6 mg/dL (0.1-1.0); Bun/Creatinine Ratio 2.8 (12.0-20.0); Calcium, Blood 8.8 mg/dL (8.5-10.1); Creatinine, Blood 2.14 mg/dL (0.40-1.00); Globulin, Blood 3.3 g/dL (2.2-4.0); Potassium, Blood 4.1 mmol/L (3.5-5.5); Total Protein, Blood 7.2 g/dL (6.4-8.2)
[2022-11-06 19:02] VITALS: BP 168/105
--- NOTE | 2022-11-06 19:33 | NUR ---
PATIENT ARRIVED TO UNIT VITALS TAKEN AND THEN PATIENT WENT DOWN FOR MRI WITH TRANSPORT VIA WHEELCHAIR.
[2022-11-06 21:13] VITALS: BP 166/105
[2022-11-06 21:47] VITALS: BP 126/72
[2022-11-07 02:04] VITALS: BP 152/93
--- NOTE | 2022-11-07 05:22 | NUR ---
SUMMARY: PATIENT ADMITTED 1914. DIALYSIS CATHETER TO R CHEST WAS OPEN TO AIR WITH NO DRESSING COVERING INSERTION SITE. PATIENT STATED "THE DRESSING FELL OFF". IMMEDIATELY CLEANED AREA USING STERILE TECHNIQUE PLACED DRESSING OVER CATH SITE. PATIENT AOX4. BP SLIGHTLY ELEVATED. PATIENT WENT FOR MRI IMAGING. UPON RETURN TO UNIT ORAL SCHEDULED BP MEDS GIVEN. BP RECHECKED 1 HOUR LATER AND IV HYDRALAZINE THEN GIVEN FOR ELEVATED BP. PATIENT DOES NOT USE CALL LIGHT APPROPRIATELY. CALLING OUT INTO THE HALLWAY AFTER EDUCATION TO USE CALL LIGHT. PATIENT VERBALIED THAT STAFF WAS ANNOYING HER WHEN WE WERE CHECKING HER BLOOD PRESSURE AND ROUNDING TO CHECK ON HER.
[2022-11-07 07:39] VITALS: BP 177/111
[2022-11-07 08:47] VITALS: BP 147/108
--- NOTE | 2022-11-07 11:22 | NUR ---
0930- PT REFUSING TO WEAR BASIC COMBATANT SWIMMER. PT REMOVED MONITOR AND ASKING TO LEAVE AMA. ALL PAPERWORK SIGNED FOR AMA. NOTIFIED BY ANDRIA SADLER-CHARGE.
--- NOTE | 2022-11-07 11:25 | NUR ---
1100- PT SIGNED ALL DISCHARGE PAPERWORK. PT LEFT WITH ALL BELONGINGS. PT BROUGHT DOWN TO ER ENTRANCE AND WAS PICKED UP FROM HOSPITAL FROM A FRIEND. ALL DISCHARGE PAPERWORK DISCUSSED WITH PT.
== END 2022-11-07 11:03 | disposition home or self-care (01) ==
LOC: ER 11:20 → MEDS 17:16
PROVIDERS: Physician Assistant; ADMIT Internal Medicine
DX: G45.9 Transient cerebral ischemic attack, unspecified (principal); I12.0 Hypertensive chronic kidney disease with stage 5 chronic kidney disease or end stage renal disease; N18.6 End stage renal disease; F31.9 Bipolar disorder, unspecified; Z66 Do not resuscitate; Z99.2 Dependence on renal dialysis; Z88.8 Allergy status to other drugs, medicaments and biological substances; Z79.899 Other long term (current) drug therapy; Z87.891 Personal history of nicotine dependence
CPT/HCPCS: 36415; 70450; 70544; 70551; 80053; 83735; 85025; 93005; 93010; 96374; 96375; 99285-25; A9270; G0378; J0360; J2060

== ENCOUNTER 2023-03-29 11:25 | Day surgery (SDC) | payer OTHER ==
[~2023-03-29] VITALS: Ht 165.1 cm; Wt 43.0 kg
[2023-03-29] MEDS ORDERED: NIFE30ER PO (11:43)
[2023-03-29] MEDS ORDERED: RENVELA800 MG PO (11:44)
[2023-03-29] MEDS ORDERED: CALPHRON PO (11:46)
[2023-03-29 11:48] VITALS: BP 187/132
[2023-03-29 11:50] VITALS: BP 189/114
--- NOTE | 2023-03-29 12:50 | NUR ---
PATIENT IS WAITING FOR PROCEDURE. UP TO THE RESTROOM WITH WALKER AND STAFF ASSIST. BACK TO BED. GAIT STEADY BUT SLOW. CALL LIGHT IN REACH.
--- NOTE | 2023-03-29 14:30 | NUR ---
1410 PATIENT RETURNED FROM THE CATHLAB. DRESSING TO THE RIGHT UPPER CHEST WALL CDI WITH A SMALL AMOUNT OF OOZE UNDER THE DRESSING NOTED. PATIENT PLACED ON THE MONITOR. NO SEDATION WAS USED DURING THE PROCEDURE.
--- NOTE | 2023-03-29 14:32 | NUR ---
1430 TRAY SERVED AND PATIENT FEEDING SELF.
--- NOTE | 2023-03-29 14:32 | NUR ---
PIV REMOVED PER PATIENT REQUEST. CATH TIP INTACT AND PRESSURE DRESSING APPLIED.
--- NOTE | 2023-03-29 15:56 | NUR ---
DR. GOLDEN CALLED TO THE BEDSIDE AFTER PATIENT HAS SOAKED THROUGH SECOND DRESSING. TRAY SET UP AND STICH PLACED TO THE UPPER AND LOWER PERMACATH SITE, NEW BIOPATCH AND CHG DRESSED PLACED WITH OUTER PRESSURE DRESSING APPLIED. PAITENT IN UPRIGHT SITTING POSITION TO FACILITATE STOP BLEEDING PER MD INSTRUCTIONS.
--- NOTE | 2023-03-29 16:16 | NUR ---
NEED GAUZE DRESSING REPLACED, SOAKED IN [address] GOLDEN[address] PRESSURE DRESSING IN PLACE AND PATIENT IS SITTING IN HIGH FOWLERS POSITION.
--- NOTE | 2023-03-29 17:48 | NUR ---
ENTIRE DRESSING REMOVED AND MANUAL PRESSURE HELD FOR 45 MINUTES. REAPPLIED GLUE TO SKIN TEAR KNICK AT THE LOWER INSERTION SITE. REDRESSED WITH BIOPATCH X TWO CHG DRESSING AND PRESSURE DRESSING. PATIENT IS NON-COMPLIANT WITH USAGE OF THE RIGHT ARM, RAISING ARM AND USING ARM. REVIEWED INSTRUCTIONS ANDCOPIES GIVEN. GATHERED ALL BELONGINGS AND RIDE ON THEIR WAY.
--- NOTE | 2023-03-29 18:06 | NUR ---
PATIENT DISCHARGED HOME VIA WHEELCHAIR TO FRIEND CLAY TRANSPORTER WITHAnibal CERVANTESS. INSTRUCTED TO RETURN TO THE ED IF BLEEDING NOTED FROM [facility] SITE.
== END 2023-03-29 22:36 | disposition home or self-care (01) ==
LOC: MHTC 11:25
DX: I12.0 Hypertensive chronic kidney disease with stage 5 chronic kidney disease or end stage renal disease (principal); N18.6 End stage renal disease; D63.1 Anemia in chronic kidney disease; Z86.73 Personal history of transient ischemic attack (TIA), and cerebral infarction without residual deficits; Z87.891 Personal history of nicotine dependence
CPT/HCPCS: 36558; 76937; 77001; C1725; C1750; C1769; J1644; J2250; J3010; J7040; Q9967

== ENCOUNTER 2023-03-29 19:21 | Observation (INO) | payer OTHER ==
[~2023-03-29 19:21] MED LIST changes: +CALPHRON PO; +NIFE30ER PO; +RENVELA800 MG PO
[2023-03-29 22:42] LABS: BASOPHILS PERCENT AUTO 1 % (0-2); EOSINOPHILS PERCENT AUTO 2 % (0-6); Hemoglobin 10.6 g/dL (11.5-16.0); IMMATURE GRAN ABSOLUTE AUTO 0.06 K/mm3 (0.00-0.10); IMMATURE GRAN PERCENT AUTO 1 % (0-1); LYMPHOCYTES PERCENT AUTO 11 % (21-46); MONOCYTES ABSOLUTE AUTO 0.68 K/mm3 (0.16-1.47); MONOCYTES PERCENT AUTO 6 % (4-13); Mean Corpuscular HGB 31.4 pg (26.0-34.0); Mean Corpuscular HGB Conc 34.2 g/dL (31.5-36.5); Mean Corpuscular Volume 92 fL (80-100); NEUTROPHILS ABSOLUTE AUTO 9.08 K/mm3 (1.96-9.15); NEUTROPHILS PERCENT AUTO 80 % (41-73); Platelet Count 246 K/mm3 (150-400); RDW Coefficient Variation 14.5 % (11.7-14.2); RDW Standard Deviation 46.5 fL (35.1-46.3); Red Blood Cell Count 3.38 M/mm3 (3.80-5.20); White Blood Cell Count 11.32 K/mm3 (4.00-11.30)
[2023-03-30 00:09] LABS: International Normalized Ratio 0.99; Prothrombin Time Results 10.4 Sec (9.7-11.5)
[2023-03-30 01:17] VITALS: BP 183/110
[2023-03-30 05:48] VITALS: BP 197/108
[2023-03-30 07:23] VITALS: BP 142/110
--- NOTE | 2023-03-30 13:07 | NUR ---
PT DISCHARGED FROM THE UNIT. IV REMOVED. DISCHARGE INSTRUCTIONS REIVEWED. FRIEND TO DRIVE HOME
[2023-03-30 16:01] VITALS: BP 183/110
[2023-03-30 17:59] VITALS: BP 183/110
== END 2023-03-30 12:10 | disposition home or self-care (01) ==
LOC: ER 19:21 → MEDS 19:22 → ENPENDDIS 03-30 10:19 → MEDS 03-30 12:10
PROVIDERS: Student in an Organized Health Care Education/Training Program; ADMIT Internal Medicine
DX: T82.838A Hemorrhage due to vascular prosthetic devices, implants and grafts, initial encounter (principal); Y71.8 Miscellaneous cardiovascular devices associated with adverse incidents, not elsewhere classified; I12.0 Hypertensive chronic kidney disease with stage 5 chronic kidney disease or end stage renal disease; N18.6 End stage renal disease; Z88.8 Allergy status to other drugs, medicaments and biological substances; Z79.899 Other long term (current) drug therapy; D63.1 Anemia in chronic kidney disease; Z86.73 Personal history of transient ischemic attack (TIA), and cerebral infarction without residual deficits; Z87.891 Personal history of nicotine dependence
CPT/HCPCS: 36558; 76937; 77001; 85025; 85610; 96374; 99285; A9270; C1725; C1750; C1769; G0378; J0360; J1644; J2250; J3010; J7040; Q9967

== ENCOUNTER → 2023-06-22 | Outpatient (CLI) | payer OTHER ==
[2023-06-22 14:32] LABS: BASOPHILS ABSOLUTE AUTO 0.11 K/mm3 (0.00-0.23); BASOPHILS PERCENT AUTO 1 % (0-2); EOSINOPHILS ABSOLUTE AUTO 0.13 K/mm3 (0.00-0.68); EOSINOPHILS PERCENT AUTO 2 % (0-6); Hemoglobin 12.1 g/dL (11.5-16.0); IMMATURE GRAN ABSOLUTE AUTO 0.04 K/mm3 (0.00-0.10); IMMATURE GRAN PERCENT AUTO 1 % (0-1); LYMPHOCYTES ABSOLUTE AUTO 0.95 K/mm3 (0.84-5.20); LYMPHOCYTES PERCENT AUTO 11 % (21-46); MONOCYTES ABSOLUTE AUTO 0.42 K/mm3 (0.16-1.47); MONOCYTES PERCENT AUTO 5 % (4-13); Mean Corpuscular HGB Conc 33.6 g/dL (31.5-36.5); Mean Corpuscular Volume 92 fL (80-100); Mean Platelet Volume 9.5 fL (9.1-12.4); NEUTROPHILS ABSOLUTE AUTO 6.98 K/mm3 (1.96-9.15); NEUTROPHILS PERCENT AUTO 81 % (41-73); Platelet Count 238 K/mm3 (150-400); RDW Coefficient Variation 15.2 % (11.7-14.2); RDW Standard Deviation 48.4 fL (35.1-46.3); White Blood Cell Count 8.63 K/mm3 (4.00-11.30)
[2023-06-22 15:27] LABS: Albumin, Blood 3.9 g/dL (3.4-5.0); Albumin/Globulin Ratio 1.1 (0.8-1.8); Bilirubin, Total 0.4 mg/dL (0.1-1.0); Bun/Creatinine Ratio 4.2 (12.0-20.0); Calcium, Blood 9.4 mg/dL (8.5-10.1); Creatinine, Blood 5.94 mg/dL (0.40-1.00); Globulin, Blood 3.4 g/dL (2.2-4.0); Percent Saturation 21.2 % (15.0-50.0); Potassium, Blood 3.6 mmol/L (3.5-5.5); Thyroid Stimulating Hormone 0.589 uIU/mL (0.360-4.800); Total Protein, Blood 7.3 g/dL (6.4-8.2)
== END ==
LOC: LAB 11:13 → LAB SHORT 11:13
PROVIDERS: Student in an Organized Health Care Education/Training Program
DX: R53.83 Other fatigue (principal); D64.9 Anemia, unspecified; N18.6 End stage renal disease; Z79.899 Other long term (current) drug therapy
CPT/HCPCS: 80053; 82306; 82607; 82728; 82746; 83540; 83550; 84443; 85025

== ENCOUNTER 2023-09-06 07:17 | Emergency (ER) | payer OTHER ==
[~2023-09-06] VITALS: Ht 165.1 cm; Wt 52.2 kg
[2023-09-06 07:39] VITALS: BP 179/106
[2023-09-06 08:03] LABS: BASOPHILS ABSOLUTE AUTO 0.08 K/mm3 (0.00-0.23); BASOPHILS PERCENT AUTO 1 % (0-2); EOSINOPHILS ABSOLUTE AUTO 0.59 K/mm3 (0.00-0.68); EOSINOPHILS PERCENT AUTO 5 % (0-6); Hematocrit 22.6 % (33.0-51.0); Hemoglobin 7.4 g/dL (11.5-16.0); IMMATURE GRAN ABSOLUTE AUTO 0.09 K/mm3 (0.00-0.10); IMMATURE GRAN PERCENT AUTO 1 % (0-1); LYMPHOCYTES ABSOLUTE AUTO 1.28 K/mm3 (0.84-5.20); LYMPHOCYTES PERCENT AUTO 11 % (21-46); MONOCYTES ABSOLUTE AUTO 0.64 K/mm3 (0.16-1.47); MONOCYTES PERCENT AUTO 6 % (4-13); Mean Corpuscular HGB 30.6 pg (26.0-34.0); Mean Corpuscular HGB Conc 32.7 g/dL (31.5-36.5); Mean Corpuscular Volume 93 fL (80-100); Mean Platelet Volume 10.5 fL (9.1-12.4); NEUTROPHILS ABSOLUTE AUTO 8.69 K/mm3 (1.96-9.15); NEUTROPHILS PERCENT AUTO 76 % (41-73); Platelet Count 202 K/mm3 (150-400); RDW Coefficient Variation 14.8 % (11.7-14.2); RDW Standard Deviation 51.1 fL (35.1-46.3); Red Blood Cell Count 2.42 M/mm3 (3.80-5.20); White Blood Cell Count 11.37 K/mm3 (4.00-11.30)
[2023-09-06 08:18] LABS: Influenza A Negative (NEGATIVE); Influenza B Negative (NEGATIVE)
[2023-09-06 08:32] LABS: SARS-Cov-2 (COVID-19) PCR, MMC NEGATIVE (NEGATIVE)
[2023-09-06 08:44] LABS: Albumin, Blood 2.8 g/dL (3.4-5.0); Albumin/Globulin Ratio 0.9 (0.8-1.8); Bilirubin, Total 0.3 mg/dL (0.1-1.0); Bun/Creatinine Ratio 9.5 (12.0-20.0); Calcium, Blood 7.9 mg/dL (8.5-10.1); Creatinine, Blood 9.86 mg/dL (0.40-1.00); Globulin, Blood 3.1 g/dL (2.2-4.0); Potassium, Blood 4.7 mmol/L (3.5-5.5); Total Protein, Blood 5.9 g/dL (6.4-8.2)
== END 2023-09-06 10:06 | disposition home or self-care (01) ==
LOC: ER 07:17
PROVIDERS: Physician Assistant
DX: Z00.8 Encounter for other general examination (principal); I10 Essential (primary) hypertension; F20.9 Schizophrenia, unspecified; F17.200 Nicotine dependence, unspecified, uncomplicated; Z99.2 Dependence on renal dialysis; Z11.52 Encounter for screening for COVID-19; Z88.8 Allergy status to other drugs, medicaments and biological substances; Z79.899 Other long term (current) drug therapy
CPT/HCPCS: 80053; 85025; 87804; 87807; 93005; 93010; 99285-25; U0002

== ENCOUNTER 2023-10-05 12:55 | Emergency (ER) | payer OTHER ==
[~2023-10-05] VITALS: Ht 162.6 cm; Wt 45.4 kg
[2023-10-05] MEDS ORDERED: Labetalol HCL 5 MG/ML 4ML Injection (Single Dose) ONE (13:12)
[2023-10-05 13:15] LABS: Creatinine (POC) 7.8 mg/dL (0.6-1.0)
[2023-10-05] MEDS ORDERED: levETIRAcetam 1,000 MG in NS 100 ML IV ONE (13:15)
[2023-10-05] MEDS ORDERED: NiCARdipine HCL 25 MG in NS 250 ML IV SCH (13:15)
[2023-10-05] MEDS ORDERED: Sodium Chloride 3% 300 ML IV ONE (13:20)
[2023-10-05 13:22] LABS: BASOPHILS PERCENT AUTO 1 % (0-2); EOSINOPHILS ABSOLUTE AUTO 0.05 K/mm3 (0.00-0.68); EOSINOPHILS PERCENT AUTO 1 % (0-6); Hematocrit 38.1 % (33.0-51.0); Hemoglobin 12.5 g/dL (11.5-16.0); IMMATURE GRAN ABSOLUTE AUTO 0.04 K/mm3 (0.00-0.10); IMMATURE GRAN PERCENT AUTO 0 % (0-1); LYMPHOCYTES ABSOLUTE AUTO 1.18 K/mm3 (0.84-5.20); LYMPHOCYTES PERCENT AUTO 13 % (21-46); MONOCYTES PERCENT AUTO 6 % (4-13); Mean Corpuscular HGB 30.5 pg (26.0-34.0); Mean Corpuscular HGB Conc 32.8 g/dL (31.5-36.5); Mean Corpuscular Volume 93 fL (80-100); Mean Platelet Volume 11.1 fL (9.1-12.4); NEUTROPHILS ABSOLUTE AUTO 7.49 K/mm3 (1.96-9.15); NEUTROPHILS PERCENT AUTO 79 % (41-73); NRBC ABSOLUTE 0.02 K/mm3 (0.00-0.02); NRBC Auto 0.2 /100 WBC (0.0-0.2); Platelet Count 189 K/mm3 (150-400); RDW Coefficient Variation 15.8 % (11.7-14.2); RDW Standard Deviation 51.9 fL (35.1-46.3); White Blood Cell Count 9.46 K/mm3 (4.00-11.30)
[2023-10-05] MEDS ORDERED: DESMOPRESSIN ACETATE IV ONE (13:25)
[2023-10-05] MEDS ORDERED: NS IV ONE (13:25)
[2023-10-05] MEDS ORDERED: propofoL 100 ML IV ONE ×2 (13:34→14:51)
[2023-10-05 13:35] LABS: International Normalized Ratio 0.99; Prothrombin Time Results 10.4 Sec (9.7-11.5)
[2023-10-05 13:47] LABS: Alanine Aminotransfer (ALT/SGP 17 U/L (12-78); Albumin, Blood 3.9 g/dL (3.4-5.0); Albumin/Globulin Ratio 1.1 (0.8-1.8); Alk Phos 99 U/L (50-136); Anion Gap 11 mmol/L (6-16); Aspartate Aminotrans (AST/SGOT 35 U/L (12-37); Bilirubin, Total 0.8 mg/dL (0.1-1.0); Blood Urea Nitrogen 34 mg/dL (8-24); Bun/Creatinine Ratio 5.1 (12.0-20.0); CO2, Blood 22 mmol/L (21-32); Calcium, Blood 9.9 mg/dL (8.5-10.1); Chloride, Blood 101 mmol/L (98-108); Globulin, Blood 3.5 g/dL (2.2-4.0); Glomerular Filtration Rate 6 (60-); Glucose, Blood 145 mg/dL (70-99); Magnesium, Blood 2.7 mg/dL (1.6-2.4); Potassium, Blood 4.5 mmol/L (3.5-5.5); Sodium, Blood 134 mmol/L (136-145); Total Protein, Blood 7.4 g/dL (6.4-8.2)
[2023-10-05 14:18] LABS: Base Excess Venous -2.6 mmol/L; Bicarbonate Venous 22.6 mmol/L (24.0-30.0); PCO2 Venous 36.6 mmHg (38-42); pH Blood Venous 7.39 (7.34-7.37)
[2023-10-05 14:50] VITALS: BP 162/102
[2023-10-05 15:35] LABS: Source, Urine Foley catheter
[2023-10-05 15:40] LABS: Appearance, Urine Cloudy (Clear); Bilirubin, Urine Neg (Neg); Blood, Urine 3+ (Neg); Color, Urine Yellow (P-Yellow); Glucose Qualitative, Urine Neg (Neg); Ketones, Urine Neg (Neg); Leukocyte Esterase, Urine 2+ (Neg); Nitrite, Urine Neg (Neg); Protein, Urine 4+ (Neg); Urobilinogen, Urine NORM (Normal)
[2023-10-05 15:55] LABS: Bacteria Many /hpf; Squamous Epithelial Cells Not Seen /hpf (Few); Transitional Epithelial Cells Few /hpf (0-Rare)
[2023-10-05] MEDS ORDERED: Rocuronium Bromide 10 MG/ML 5ML Injection IV ONE (18:03)
[2023-10-05] MEDS ORDERED: Propofol 10mg/ml 20 ml Vial (Procedural) IV ONE (18:03)
== END 2023-10-05 15:17 | disposition short-term general hospital (02) ==
LOC: ER 12:55
PROVIDERS: Student in an Organized Health Care Education/Training Program
DX: I61.9 Nontraumatic intracerebral hemorrhage, unspecified (principal); R00.0 Tachycardia, unspecified; F17.200 Nicotine dependence, unspecified, uncomplicated; I10 Essential (primary) hypertension; F20.9 Schizophrenia, unspecified; Z79.899 Other long term (current) drug therapy; Z88.8 Allergy status to other drugs, medicaments and biological substances
CPT/HCPCS: 31500; 51702; 70450; 71045; 80053; 81001; 82565; 82803; 82947; 83735; 85025; 85610; 87077; 87086; 87186; 93005; 93010; 94002; 96365-59; 96366-59; 96375-59; 99291-25; J1953; J2597; J2704; J7050